=== PATIENT | male | born 1985 | race Hispanic/Latino ===

== ENCOUNTER 2022-02-26 14:37 | Emergency (ER) | payer OTHER ==
[~2022-02-26] VITALS: Ht 162.6 cm; Wt 71.0 kg
[2022-02-26] MEDS ORDERED: NAPROXEN500 MG PO (17:48)
[2022-02-26 18:00] VITALS: BP 136/101
== END 2022-02-26 18:09 | disposition home or self-care (01) | DRG 563 ==
LOC: ED 14:37
DX: S43.015A Anterior dislocation of left humerus, initial encounter (principal); W01.0XXA Fall on same level from slipping, tripping and stumbling without subsequent striking against object, initial encounter; Y92.89 Other specified places as the place of occurrence of the external cause